=== PATIENT | male | born 1990 | race American Indian/Alaskan Native ===

== ENCOUNTER 2017-02-18 06:53 | Emergency (ER) | payer SELFPAY ==
[2017-02-18] MEDS ORDERED: Naproxen 550 mg Tab PO STA (07:25)
[2017-02-18] MEDS ORDERED: Naproxen 550 mg Tab PO ONE (07:28)
--- NOTE | 2017-02-18 07:52 | C.PDOC ---
History Of Present Illness Patient is a 26 y/o male that presents to the ED for evaluation of left ankle pain since this morning. Patient states that he twisted and fell this morning at 2:00, injuring his left ankle. Notes being able to bear weight. Patient denies any other trauma, change in sensation, extremity weakness, numbness, or any other associated symptoms. Time Seen by Provider: 02/18/17 07:14 Chief Complaint (Nursing): Lower Extremity Problem/Injury History Per: Patient History/Exam Limitations: no limitations Onset/Duration Of Symptoms: Hrs Current Symptoms Are (Timing): Still Present Recent travel outside of the [place]: No Additional History Per: Patient - Ankle/Foot Description Of Injury: Fell, Twisted Past Medical History Reviewed: Historical Data, Nursing Documentation, Vital Signs Vital Signs: Last Vital Signs Temp 98.6 F 02/18/17 08:44 Pulse 92 H 02/18/17 08:44 Resp 18 02/18/17 08:44 BP 109/63 02/18/17 08:44 Pulse Ox 95 02/18/17 10:25 Family History: States: No Known Family Hx - Social History Hx Alcohol Use: No Hx Substance Use: No - Immunization History Hx Tetanus Toxoid Vaccination: No Hx Influenza Vaccination: No Hx Pneumococcal Vaccination: No Review Of Systems Except As Marked, All Systems Reviewed And Found Negative. Constitutional: Negative for: Fever, Chills Musculoskeletal: Positive for: Foot Pain (left ankle) Skin: Negative for: Rash Neurological: Negative for: Weakness, Numbness Physical Exam - Physical Exam Appears: Non-toxic, No Acute Distress Skin: Normal Color, Warm, Dry Head: Atraumatic, Normacephalic Eye(s): bilateral: Normal Inspection, EOMI Nose: Normal Neck: Normal ROM, Supple Chest: Symmetrical Respiratory: No Accessory Muscle Use Extremity: Normal ROM (FROM of left foot), Tenderness (left lateral malleolus), No Calf Tenderness, Capillary Refill (< 2 sec.), No Deformity, No Swelling Extremity: Bilateral: Normal Color And Temperature, Normal ROM Pulses: Left Dorsalis Pedis: Normal, Right Dorsalis Pedis: Normal Neurological/Psych: Oriented x3, Normal Speech, Normal Motor, Normal Sensation ED Course And Treatment O2 Sat by Pulse Oximetry: 95 (on RA) Pulse Ox Interpretation: Normal - Other Rad Left ankle x-ray X-Ray: Interpreted by Me, Viewed By Me Interpretation: No acute fracture or dislocation. Progress Note: Left ankle/foot x-ray ordered and reviewed. Patient was given Naproxen in the ER. Stirrups applied by aviation safety equipment technician. Patient was given crutches. Patient is being discharged home, with instructions to follow up with PMD in 1- 2 days. Patient was instructed to rest, ice and elevate the area. Disposition - Disposition Referrals: Stephen Worrell MD [Staff Provider] - Disposition: HOME/ ROUTINE Disposition Time: 07:49 Condition: STABLE Additional Instructions: Rest, ice and elevate the area. Follow up with your primary medical doctor or clinic in 2-5 days for further evaluation. Take medications as prescribed. Return to the emergency department at any time if symptoms persist or worsen. 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 - Scribe Statement The provider has reviewed the documentation as recorded by the Scribe Jessica Hansen All medical record entries made by the Rasta were at my direction and personally dictated by me. I have reviewed the chart and agree that the record accurately reflects my personal performance of the history, physical exam, medical decision making, and the department course for this patient. I have also personally directed, reviewed, and agree with the discharge instructions and disposition.
--- NOTE | 2017-02-18 08:21 | RAD ---
Left foot three views History: Trauma. Comparison: None available. Findings: Lateral subluxation of the 5th middle phalanx in relationship to the proximal phalanx at the level of the PIP joint space. Mild hallux valgus deformity. Small rounded lucency measuring 5 millimeter seen within the posterior calcaneus on the oblique view, nonspecific. Clinical correlation. Impression: Lateral subluxation of the 5th middle phalanx in relationship to the proximal phalanx at the level of the PIP joint space. Mild hallux valgus deformity. Small rounded lucency measuring 5 millimeter seen within the posterior calcaneus on the oblique view, nonspecific. Clinical correlation. If pain persists, consider MRI.
--- NOTE | 2017-02-18 08:23 | RAD ---
Left ankle three views History: Trauma. Comparison: None available. Findings: Medial and lateral malleolar soft tissue swelling. Suggestion of mild widening of the medial ankle mortise measuring 5 millimeters on the frontal view. Clinical correlation. Cortical productive change along the lateral cortex of the distal tibia at the level of the syndesmosis. Clinical correlation. Impression: Medial and lateral malleolar soft tissue swelling. Suggestion of mild widening of the medial ankle mortise measuring 5 millimeters on the frontal view. Clinical correlation. Cortical productive change along the lateral cortex of the distal tibia at the level of the syndesmosis. Clinical correlation. If pain persists, consider MRI.
[2017-02-18 08:44] VITALS: BP 109/63; PULSE 92; RESP 18; TEMP 98.6
[2017-02-18 10:16] VITALS: O2SAT 95
== END 2017-02-18 08:45 | disposition home or self-care (01) ==
LOC: C.ER 06:53
DX: S93.402A Sprain of unspecified ligament of left ankle, initial encounter (principal); W18.39XA Other fall on same level, initial encounter; Y92.9 Unspecified place or not applicable

== ENCOUNTER 2017-11-16 21:33 | Emergency (ER) | payer BC ==
[2017-11-16 21:56] VITALS: TEMP 102.8
[2017-11-16] MEDS ORDERED: Sodium Chloride 0.9% 1,000 ML IV ONE (22:11)
[2017-11-16] MEDS ORDERED: Sodium Chloride 0.9% 1,000 ML ONE (22:28)
[2017-11-16 22:38] LABS: BASO % 0.2 % (0.0-2.0); HEMOGLOBIN 14.3 g/dL (12.0-18.0); LYMPH # 0.5 K/uL (1.0-4.3); LYMPH % 4.7 % (20.0-40.0); MEAN CELL VOLUME 80.6 fL (80.0-94.0); MEAN CORPUSCULAR HEMOGLOBIN 26.1 pg (27.0-31.0); MEAN CORPUSCULAR HGB CONC 32.4 g/dL (33.0-37.0); MEAN PLATELET VOLUME 7.4 fL (7.2-11.7); MONO # 0.7 K/uL (0.0-0.8); MONO % 6.3 % (0.0-10.0); NEUT # 10.2 K/uL (1.8-7.0); NEUT % 88.8 % (50.0-75.0); PLATELET COUNT 295 K/uL (130-400); RBC 5.48 Mil/uL (4.40-5.90); RED CELL DISTRIBUTION WIDTH 12.9 % (11.5-14.5); WHITE BLOOD COUNT 11.5 K/uL (4.8-10.8)
[2017-11-16 22:42] LABS: URINE BACTERIA RARE (<OCC); URINE BILIRUBIN NEGATIVE (NEGATIVE); URINE BLOOD NEGATIVE (NEGATIVE); URINE CLARITY Clear (Clear); URINE COLOR Yellow (YELLOW); URINE GLUCOSE (UA) NORMAL (Normal); URINE LEUKOCYTE ESTERASE NEG Leu/uL (Negative); URINE PROTEIN 1+ mg/dL (NEGATIVE)
[2017-11-16 22:50] LABS: ALB/GLOB RATIO 1.1 (1.0-2.1); ALBUMIN 4.3 g/dL (3.5-5.0); ALT/SGPT 16 U/L (21-72); AST/SGOT 31 U/L (17-59); BLOOD UREA NITROGEN 16 mg/dL (9-20); CALCIUM 8.7 mg/dl (8.6-10.4); GFR AFRICAN-AMERICAN > 60; GFR NON-AFRICAN AMERICAN > 60; LIPASE 36 U/L (23-300)
[2017-11-16 22:54] LABS: LYMPHOCYTE 7 % (20-40); MONOCYTE 5 % (0-10); NEUTROPHIL 88 % (50-75); PLATELET ESTIMATE NORMAL (NORMAL); TOTAL CELLS COUNTED 100
[2017-11-16] MEDS ORDERED: Iodixanol 320 mg/ml 150 ml Bottle IV ONE (23:02)
[2017-11-16 23:15] VITALS: BP 111/57; PULSE 90; RESP 20; O2SAT 98
[2017-11-16] MEDS ORDERED: Iohexol 240 (50 ml) PO ONE (23:46)
--- NOTE | 2017-11-16 23:49 | C.PDOC ---
History Of Present Illness <Aamir Wood - Last Filed: 11/17/17 01:04> <Bassam Martin - Last Filed: 11/17/17 01:49> 27 y/o male presents to ED with complaints of epigastric discomfort associated with nausea that began this morning. Denies vomiting, fever, or any other physical complaints. (Aamir Wood) History Per: Patient History/Exam Limitations: no limitations Onset/Duration Of Symptoms: Hrs Current Symptoms Are (Timing): Still Present Recent travel outside of the [place]: No <Aamir Wood - Last Filed: 11/17/17 01:04> <Bassam Martin - Last Filed: 11/17/17 01:49> Time Seen by Provider: 11/16/17 21:57 Chief Complaint (Nursing): GI Problem Past Medical History Reviewed: Historical Data, Nursing Documentation, Vital Signs - Medical History PMH: No Chronic Diseases Surgical History: No Surg Hx Family History: States: Unknown Family Hx - Social History Hx Tobacco Use: Yes Hx Alcohol Use: No Hx Substance Use: No - Immunization History Hx Tetanus Toxoid Vaccination: No Hx Influenza Vaccination: No Hx Pneumococcal Vaccination: No <Aamir Wood - Last Filed: 11/17/17 01:04> Vital Signs: Last Vital Signs Temp 102.8 F H 11/16/17 21:55 Pulse 90 11/16/17 23:14 Resp 20 11/16/17 23:14 BP 111/57 L 11/16/17 23:14 Pulse Ox 98 11/17/17 01:05 Review Of Systems Constitutional: Negative for: Fever, Chills Gastrointestinal: Positive for: Nausea, Abdominal Pain (epigastric). Negative for: Vomiting, Diarrhea, Constipation Neurological: Negative for: Weakness, Numbness <Aamir Wood - Last Filed: 11/17/17 01:04> Physical Exam - Physical Exam Appears: Non-toxic, No Acute Distress Skin: Normal Color, Warm, Dry Head: Atraumatic, Normacephalic Eye(s): bilateral: Normal Inspection, PERRL Oral Mucosa: Moist Neck: Supple Chest: Symmetrical, No Tenderness Cardiovascular: Rhythm Regular Respiratory: Normal Breath Sounds, No Decreased Breath Sounds, No Rales, No Rhonchi, No Wheezing Gastrointestinal/Abdominal: Soft, No Tenderness, Other (Negative Dewey's; Positive Mcburney's ) Neurological/Psych: Oriented x3, Normal Speech, Normal Cognition <IsraelAamirAdnre - Last Filed: 11/17/17 01:04> ED Course And Treatment - Laboratory Results Result Diagrams: 11/16/17 22:34 11/16/17 22:34 O2 Sat by Pulse Oximetry: 98 (RA) Pulse Ox Interpretation: Normal <IsraelAamir - Last Filed: 11/17/17 01:04> - Laboratory Results Result Diagrams: 11/16/17 22:34 11/16/17 22:34 - CT Scan/US CT Abdomen & Pelvis Other Rad Studies (CT/US): Read By Radiologist, Radiology Report Reviewed CT/US Interpretation: EXAM: CT Abdomen and Pelvis With Intravenous Contrast. CLINICAL HISTORY: 27 years old, male; Pain; Abdominal pain; Localized; Right lower quadrant (rlq); Additional info: Rlq. pain, ? ap. TECHNIQUE: Axial computed tomography images of the abdomen and pelvis with intravenous contrast. All CT. scans at this facility use one or more dose reduction techniques, viz. : automated exposure control;. ma/kV adjustment per patient size (including targeted exams where dose is matched to indication; i.e. head); or iterative reconstruction technique. 743 images are submitted. Coronal and sagittal reformatted images were created and reviewed. [facility], [place]. [facility] Radiology [facility]. Final Radiology Report [id number]. Name: ADELAIDE LEVIN Age: 27Years M Date: 11/17/2017. SSN: [id number] : 1990. Study: CT ABDOMEN/PELVIS W Requesting Physician: Aaimr Wood. Images: 743. Addl Studies: Provided Clinical History: RLQ pain , ? AP. CONFIDENTIALITY STATEMENT. This transmission is confidential and is intended to be a privileged communication. It is intended only for the use of the addressee. Access to this. message by anyone else is unauthorized. If you are not the intended recipient, any disclosure, copying, distribution or any action taken, or omitted to. be taken in reliance on it is prohibited and may be unlawful. If you received this communication in error, please notify us by telephone, so that return. of this document to us can be arranged. Page 2 of 3. Pancreas: Unremarkable. No mass. No ductal dilation. Spleen: Left upper quadrant splenule. Unremarkable spleen. Adrenals: Unremarkable. No mass. Kidneys and ureters: Unremarkable. No solid mass. No hydronephrosis. Stomach and bowel: Diverticulosis. There are nonspecific fluid filled small bowel loops. These. findings can represent ileus versus enteritis versus slow transit versus peristalsis. No obstruction. Appendix: Normal appendix. PELVIS : Bladder: Partially decompressed bladder with bladder wall thickening. Correlation with urinalysis is. recommended only if clinical cystitis is suspected. Reproductive: Unremarkable. ABDOMEN and PELVIS: Intraperitoneal space: Unremarkable. No free air. No significant fluid collection. Bones/joints : L4-L5 disc herniation seen on image 100 series 602. No acute fracture. No. dislocation. Soft tissues: There is a fat-containing umbilical hernia. Vasculature: Right-sided pelvic phleboliths. No abdominal aortic aneurysm. Lymph nodes: Bilateral groin lymph nodes. Small subcentimeter para-aortic lymph nodes. Multiple. subcentimeter mesenteric and ileocolic lymph nodes. Findings are nonspecific but may represent. mesenteric adenitis. IMPRESSION: 1. No acute findings. 2.There is left lower lobe pleural-based nodule seen on image 21 series 3 not characterized on this. examination. The clinical significance of this finding is unclear.Correlation with pulmonary risk factors. [facility], [place]. [facility] Radiology [facility]. Final Radiology Report [id number]. Name: ADELAIDE LEVIN Age: 27Years M Date: 11/17/2017. SSN: [id number] : 1990. Study: CT ABDOMEN/PELVIS W Requesting Physician: Aamir Wood. Images: 743. Addl Studies: Provided Clinical History: RLQ pain, ? AP. CONFIDENTIALITY STATEMENT. This transmission is confidential and is intended to be a privileged communication. It is intended only for the use of the addressee. Access to this. message by anyone else is unauthorized. If you are not the intended recipient, any disclosure, copying, distribution or any action taken, or omitted to. be taken in reliance on it is prohibited and may be unlawful. If you received this communication in error, please notify us by telephone, so that return. of this document to us can be arranged. Page 3 of 3. clinical evaluation and further workup or followup as recommended by patient's clinical data. Statistically this can represent benign etiology Progress Note: Patient states he feels, no epigastric pain, abdomen is soft, minimal tenderness of RLQ area, CT -neg for appendicitis. Patient to be discharged with instruction to return if with increased RLQ abd pain. Reevaluation Time: 01:47 Reassessment Condition: Improved <Bassam Martin - Last Filed: 11/17/17 01:49> Medical Decision Making <Aamir Wood - Last Filed: 11/17/17 01:04> <Bassam Martin - Last Filed: 11/17/17 01:49> Medical Decision Making: Administered Toradol, Tylenol, IV fluid, and Omnipaque. Ordered blood work, CT of abdomen&Pelvis, and urinalysis. 0100: ? AP pending CT results- signed over to night MD (Aamir Wood) Disposition - Disposition Disposition Time: 01:00 <Aamir Wood - Last Filed: 11/17/17 01:04> Counseled Patient/Family Regarding: Diagnosis - POA Present On Arrival: None <Bassam Martin - Last Filed: 11/17/17 01:49> - Disposition Referrals: Non [facility] Provider, [Primary Care Provider] - [facility] at [facility] [Outside] Condition: STABLE Prescriptions: Dicyclomine [Bentyl] 10 mg PO QID #10 cap Instructions: Acute Abdomen (Belly Pain), Adult (DC) Forms: [employer] (Slovak) - Clinical Impression Clinical Impression: Abdominal pain, Fever - Scribe Statement The provider has reviewed the documentation as recorded by the Scribe <Aamir Wood - Last Filed: 11/17/17 01:04> <Bassam Martin - Last Filed: 11/17/17 01:49> - Scribe Statement Bob Ramachandran All medical record entries made by the Scribe were at my direction and personally dictated by me. I have reviewed the chart and agree that the record accurately reflects my personal performance of the history, physical exam, medical decision making, and the department course for this patient. I have also personally directed, reviewed, and agree with the discharge instructions and disposition. (Aamir Wood) Physician Patient Turnover Patient Signed Over To: Bassam Martin Handoff Comments: follow-up CT and dispo appropriately <Aamir Wood - Last Filed: 11/17/17 01:04>
--- NOTE | 2017-11-17 01:36 | CT ---
EXAM: CT Abdomen and Pelvis With Intravenous Contrast CLINICAL HISTORY: 27 years old, male; Pain; Abdominal pain; Localized; Right lower quadrant (rlq); Additional info: Rlq pain, ? ap TECHNIQUE: Axial computed tomography images of the abdomen and pelvis with intravenous contrast. All CT scans at this facility use one or more dose reduction techniques, viz.: automated exposure control; ma/kV adjustment per patient size (including targeted exams where dose is matched to indication; i.e. head); or iterative reconstruction technique. 743 images are submitted. Coronal and sagittal reformatted images were created and reviewed. Axial reformatted images were created and reviewed. CONTRAST: 100 mL of [id number] administered intravenously. COMPARISON: No relevant prior studies available. FINDINGS: Lung bases: There is left lower lobe pleural-based nodule seen on image 21 series 3 not characterized on this examination. There is respiratory motion artifact. There is bibasilar atelectasis. ABDOMEN: Liver: Fatty liver. Gallbladder and bile ducts: Partial distention of the gallbladder. Pancreas: Unremarkable. No mass. No ductal dilation. Spleen: Left upper quadrant splenule. Unremarkable spleen. Adrenals: Unremarkable. No mass. Kidneys and ureters: Unremarkable. No solid mass. No hydronephrosis. Stomach and bowel: Diverticulosis. There are nonspecific fluid filled small bowel loops. These findings can represent ileus versus enteritis versus slow transit versus peristalsis. No obstruction. Appendix: Normal appendix. PELVIS: Bladder: Partially decompressed bladder with bladder wall thickening. Correlation with urinalysis is recommended only if clinical cystitis is suspected. Reproductive: Unremarkable. ABDOMEN and PELVIS: Intraperitoneal space: Unremarkable. No free air. No significant fluid collection. Bones/joints: L4-L5 disc herniation seen on image 100 series 602. No acute fracture. No dislocation. Soft tissues: There is a fat-containing umbilical hernia. Vasculature: Right-sided pelvic phleboliths. No abdominal aortic aneurysm. Lymph nodes: Bilateral groin lymph nodes. Small subcentimeter para-aortic lymph nodes. Multiple subcentimeter mesenteric and ileocolic lymph nodes. Findings are nonspecific but may represent mesenteric adenitis. IMPRESSION: 1. No acute findings. 2.There is left lower lobe pleural-based nodule seen on image 21 series 3 not characterized on this examination. The clinical significance of this finding is unclear.Correlation with pulmonary risk factors clinical evaluation and further workup or followup as recommended by patient's clinical data. Statistically this can represent benign etiology.
== END 2017-11-17 02:00 | disposition home or self-care (01) ==
LOC: C.ER 21:33 → SUPCPDRO 21:33 → C.ER 11-17 02:00
DX: R10.9 Unspecified abdominal pain (principal); R50.9 Fever, unspecified
CPT/HCPCS: 74177; 80053; 81001; 83690; 85025; 96361; 96374; 99284; J1885; J7040

== ENCOUNTER 2018-03-11 13:57 | Emergency (ER) | payer BC ==
[2018-03-11 14:26] VITALS: BP 121/77; PULSE 90; RESP 20; TEMP 99; O2SAT 97
--- NOTE | 2018-03-11 14:39 | C.PDOC ---
History Of Present Illness <Radha Marin - Last Filed: 03/11/18 14:44> <Annie Hill - Last Filed: 03/11/18 14:52> 27 year old male with past medical history of an 8mm Pleural-based Nodule in the left lower lobe presents to the ER with anxiety. Patient states he has history of panic attacks in the past (5 years). He states yesterday he felt short of breath with palpitations that lasted for a few minutes yesterday while he was relaxing at home. He states he has seen a psychiatrist a few months ago but he was not prescribed any medications and he has never taken medications for anxiety in the past. He states the nodule that was found in his left lung when he came to the ER a few months ago has been giving him some anxiety. He denies thoughts of hurting himself or others or hallucinations. Patient denies illicit drug use, alcohol or smoking. (Annie Hill) <Radha Marin - Last Filed: 03/11/18 14:44> History Per: Patient History/Exam Limitations: no limitations <Annie Hill - Last Filed: 03/11/18 14:52> Chief Complaint (Nursing): Chest Pain Past Medical History Family History: States: Unknown Family Hx - Social History Hx Tobacco Use: Yes Hx Alcohol Use: No Hx Substance Use: No - Immunization History Hx Tetanus Toxoid Vaccination: No Hx Influenza Vaccination: No Hx Pneumococcal Vaccination: No <Annie Hill - Last Filed: 03/11/18 14:52> Vital Signs: Last Vital Signs Temp 99.0 F 03/11/18 14:22 Pulse 90 03/11/18 14:22 Resp 20 03/11/18 14:22 BP 121/77 03/11/18 14:22 Pulse Ox 97 03/11/18 14:44 Review Of Systems Constitutional: Negative for: Fever, Chills Cardiovascular: Negative for: Chest Pain, Palpitations, Light Headedness Respiratory: Negative for: Shortness of Breath Gastrointestinal: Negative for: Nausea, Vomiting Genitourinary: Negative for: Dysuria <Annie Hill - Last Filed: 03/11/18 14:52> ED Course And Treatment ECG: Interpreted By Me ECG Rhythm: Sinus Rhythm ECG Interpretation: Normal Rate From EC Pulse Ox Interpretation: Normal <Radha Marin - Last Filed: 03/11/18 14:44> O2 Sat by Pulse Oximetry: 97 <Annie Hill - Last Filed: 03/11/18 14:52> Supervising Attending Note - Supervising Attending Note Comment: RESIDENT DR HILL - Attestation: I have personally seen and examined this patient.: Yes I have fully participated in the care of the patient.: Yes I have reviewed all pertinent clinical information, including history, physical exam and plan: Yes <Radha Marin - Last Filed: 03/11/18 14:44> <Annie Hill - Last Filed: 03/11/18 14:52> - Notes: Notes:: CO ANXIETY/PANIC ATTACK ONSET YEST. INITIALLY TRANSIENT SOB, PALPITATIONS YEST NOW RESOLVED. PREV SIM EPISODES, USUALLY ASSOC PANIC ATTACKS. CURRENT EPISODE SIM TO PRIOR. CURRENTLY NOT ON PSYCH MEDS. NOT SUICIDAL, HALLUCINATIONS. NO DRUG , ETOH USE. PS WORRIED ABOUT UPCOMING MRI FOR PULMONARY NODULE EVAL. VSS EXAM ABOVE PT OFFERED 1 DOSE XANAX BUT STATES DOESNT WISH TO TAKE "ANY MEDS". REQUESTS DC HOME. ADVISED FU PSYCH /PMD (Radha Marin) Disposition Counseled Patient/Family Regarding: Diagnosis, Need For Followup - Disposition Disposition Time: 14:51 <TomasRadha - Last Filed: 03/11/18 14:44> Discussed With : Radha Marin <Annie Hill - Last Filed: 03/11/18 14:52> - Disposition Referrals: YOUR,PSYCHIATRIST [Other] Disposition: HOME/ ROUTINE Condition: GOOD Instructions: Anxiety, Adult (DC) Forms: [employer] (Dive[place]) - Clinical Impression Clinical Impression: Anxiety
--- NOTE | 2018-03-12 14:13 | CARD ---
APPROVED REPORT Date of service: 03/11/2018 EKG Measurement Heart [id number] <Conclusion> Normal sinus rhythm Moderate voltage criteria for LVH, may be normal variant Borderline ECG
== END 2018-03-11 15:00 | disposition home or self-care (01) ==
LOC: C.ER 13:57
DX: F41.9 Anxiety disorder, unspecified (principal)